=== PATIENT | male | born 1950 ===

== ENCOUNTER 2017-10-22 01:33 | Emergency (ER) | payer MEDICAID ==
--- NOTE | 2017-10-22 02:28 | C.PDOC ---
History Of Present Illness 67 year old male presents to the ER intoxicated, complaining of pain to the right lower back that radiates to the right leg. Denies recent injury, weakness , numbness, incontinence, dysuria, or hematuria. Time Seen by Provider: 10/22/17 01:59 Chief Complaint (Nursing): Lower Extremity Problem/Injury History Per: Patient History/Exam Limitations: no limitations Onset/Duration Of Symptoms: Hrs Current Symptoms Are (Timing): Still Present Recent travel outside of the [place]: No Past Medical History Reviewed: Historical Data, Nursing Documentation, Vital Signs Vital Signs: Last Vital Signs Temp 97.7 F 10/22/17 03:16 Pulse 75 10/22/17 03:16 Resp 20 10/22/17 03:16 BP 131/85 10/22/17 03:16 Pulse Ox 97 10/22/17 05:27 - Medical History PMH: HTN Family History: States: Unknown Family Hx - Social History Hx Alcohol Use: Yes Hx Substance Use: No - Immunization History Hx Influenza Vaccination: Yes Hx Pneumococcal Vaccination: Yes Review Of Systems Genitourinary: Negative for: Dysuria, Incontinence, Hematuria Musculoskeletal: Positive for: Back Pain, Leg Pain Neurological: Negative for: Weakness, Numbness Physical Exam - Physical Exam Appears: Non-toxic, No Acute Distress, Other (ETOH on breath. No sign of injury. ) Skin: Normal Color, Warm, Dry Head: Atraumatic, Normacephalic Eye(s): bilateral: Normal Inspection Back: No CVA Tenderness, No Vertebral Tenderness, No Paraspinal Tenderness Extremity: Normal ROM (x4), No Tenderness, No Deformity Neurological/Psych: Oriented x3, Normal Speech, Normal Motor, Normal Sensation Gait: Steady ED Course And Treatment O2 Sat by Pulse Oximetry: 97 (Room air) Pulse Ox Interpretation: Normal Progress Note: Motrin administered for pain. Patient is resting comfortably in the ER in no distress, AAOx 3 and is able to ambulate with steady gait and without difficulty or pain. Will discharge home with Rx and instructions to follow up with PMD for further evaluation or return if symptoms worsen. Disposition Counseled Patient/Family Regarding: Diagnosis, Need For Followup, Rx Given - Disposition Referrals: 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 - Scribe Statement The provider has reviewed the documentation as recorded by the Scribluba Black All medical record entries made by the Antonioibluba were at my direction and personally dictated by me. I have reviewed the chart and agree that the record accurately reflects my personal performance of the history, physical exam, medical decision making, and the department course for this patient. I have also personally directed, reviewed, and agree with the discharge instructions and disposition.
[2017-10-22 03:16] VITALS: BP 131/85; PULSE 75; RESP 20; TEMP 97.7
[2017-10-22 03:29] VITALS: O2SAT 97
== END 2017-10-22 03:57 | disposition home or self-care (01) ==
LOC: C.ER 01:33 → MERGE 01:33 → EDBD 01:33 → C.ER 03:57
DX: M54.16 Radiculopathy, lumbar region (principal); I10 Essential (primary) hypertension